=== PATIENT | female | born 1990 | race African-American/Black ===

== ENCOUNTER 2023-11-17 00:53 | Emergency (ER) | payer MEDICAID ==
[~2023-11-17] VITALS: Ht 167.6 cm; Wt 118.2 kg
[~2023-11-17 00:53] MED LIST: IRON PILLS
[2023-11-17 01:05] VITALS: TEMP 98.3
[2023-11-17 01:57] LABS: BASOPHILS % (AUTO) 0.4 % (0.0-2.0); EOSINOPHILS % (AUTO) 0.1 % (1.0-6.0); HEMATOCRIT 37.9 % (36-46); HEMOGLOBIN 12.6 g/dL (12.0-16.0); LYMPHOCYTES # (AUTO) 0.7 K/uL (1.0-4.8); LYMPHOCYTES % (AUTO) 6.6 % (22.0-44.0); MEAN CORPUSCULAR HEMOGLOBIN 27.3 pg (26.0-34.0); MEAN CORPUSCULAR HGB CONC 33.4 G/dL (31.0-37.0); MEAN CORPUSCULAR VOLUME 82 fL (80-100); MONOCYTES # (AUTO) 0.6 K/uL (0.1-1.0); MONOCYTES % (AUTO) 5.6 % (2.0-9.0); NEUTROPHILS # (AUTO) 9.5 K/uL (1.8-7.7); PLATELET COUNT (AUTO) 364 K/uL (150-450); RED BLOOD CELL COUNT(AUTO) 4.64 MIL/uL (4.00-5.20); RED CELL DISTRIBUTION WIDTH 15.1 % (11.5-14.5); WHITE BLOOD COUNT (AUTO) 10.8 K/uL (4.5-11.0)
[2023-11-17 02:01] LABS: NEUTROPHILS % (AUTO) 87.3 % (40.0-70.0)
[2023-11-17 02:17] LABS: ANION GAP 16 mmol/L (8-16); CALCIUM, TOTAL 9.7 mg/dL (8.8-10.5); CARBON DIOXIDE 24 mmol/L (22-29); CHLORIDE 101 mmol/L (98-107); CREATININE 1.17 mg/dL (0.60-1.30); GLOMERULAR FILTR. RATE CALC > 60 mL/min (>60); GLUCOSE,RANDOM 116 mg/dL (70-110); HCG,QUANTITATIVE 1 mIU/mL (0-6); SODIUM SERUM 141 mmol/L (136-145); UREA NITROGEN, BLOOD 12 mg/dL (7-18)
[2023-11-17 02:20] LABS: POTASSIUM 2.8 mmol/L (3.5-5.1)
[2023-11-17] MEDS: SODIUM CHLORIDE 0.9% 1,000 ML IV ONE (02:48)
[2023-11-17] MEDS: ONDANSETRON HCL 4 MG/2 ML VIAL IVP ONE (02:48)
[2023-11-17] MEDS: POTASSIUM CHLORIDE 20 MEQ ER TABLET PO ONE (02:49)
[2023-11-17] MEDS: MORPHINE SULFATE 2 MG/ML SYRINGE IVP ONE (02:50)
[2023-11-17 03:09] VITALS: BP 127/81; PULSE 79; RESP 20
[2023-11-17 03:38] LABS: ALANINE AMINOTRANSFERASE 14 U/L (12-78); ALBUMIN 3.8 g/dL (3.4-5.0); ALKALINE PHOSPHATASE 91 U/L (46-116); ASPARTATE AMINOTRANSFERASE 18 U/L (15-37); BILIRUBIN,TOTAL 1.4 mg/dL (0.1-1.0); TOTAL PROTEIN, SERUM 8.9 g/dL (6.4-8.2)
[2023-11-17 05:22] LABS: APPEARANCE,URINE HAZY (CLEAR); COLOR,URINE YELLOW (YELLOW); GLUCOSE, URINE (UA) NEGATIVE (NEGATIVE); KETONES,URINE 40-60 mg/dL (NEGATIVE); LEUKOCYTE ESTERASE ,URINE SMALL (NEGATIVE); NITRATE,URINE NEGATIVE (NEGATIVE); OCCULT BLOOD,URINE LARGE (NEGATIVE); PROTEIN,URINE 300-600,SEE CONFIRM mg/dL (NEGATIVE); SPECIFIC GRAVITIY, URINE 1.028 (1.003-1.030)
[2023-11-17 05:32] LABS: BILIRUBIN,URINE SMALL (NEGATIVE); RBC,URINE >100 /HPF (0-2); SULFOSALICYLIC ACID,URINE 4+ (Negative)
[2023-11-17 05:33] LABS: BACTERIA,URINE None Seen /HPF (None Seen); SQUAMOUS EPITHELIAL CELL,UR Few /LPF (None Seen)
[2023-11-17] MEDS ORDERED: CEPH-558 PO (05:49)
[2023-11-17] MEDS: CEPHALEXIN MONOHYDRATE 500 MG CAPSULE PO ONE (06:30)
== END 2023-11-17 06:37 | disposition home or self-care (01) ==
LOC: EMS 00:55
DX: N39.0 Urinary tract infection, site not specified (principal); M54.9 Dorsalgia, unspecified; D64.9 Anemia, unspecified
CPT/HCPCS: 99285; 74176; 96374; 96361; 96375; 80048; 80076; 81001; 84702; 85025; 36415; J2270; J2405; J7030; 81002

== ENCOUNTER 2023-11-30 19:48 | Inpatient (IN) | payer MEDICAID ==
[~2023-11-30] VITALS: Ht 175.3 cm; Wt 137.4 kg
[~2023-11-30 19:48] MED LIST changes: +CEPH-558 PO
[2023-11-30 20:43] LABS: BASOPHILS % (AUTO) 0.7 % (0.0-2.0); EOSINOPHILS % (AUTO) 0.2 % (1.0-6.0); HEMATOCRIT 36.2 % (36-46); HEMOGLOBIN 11.6 g/dL (12.0-16.0); LYMPHOCYTES # (AUTO) 2.1 K/uL (1.0-4.8); MEAN CORPUSCULAR HEMOGLOBIN 26.5 pg (26.0-34.0); MEAN CORPUSCULAR HGB CONC 32.2 G/dL (31.0-37.0); MEAN CORPUSCULAR VOLUME 82 fL (80-100); MONOCYTES % (AUTO) 7.7 % (2.0-9.0); NEUTROPHILS # (AUTO) 9.3 K/uL (1.8-7.7); NEUTROPHILS % (AUTO) 74.4 % (40.0-70.0); PLATELET COUNT (AUTO) 355 K/uL (150-450); RED BLOOD CELL COUNT(AUTO) 4.39 MIL/uL (4.00-5.20); RED CELL DISTRIBUTION WIDTH 15.1 % (11.5-14.5); WHITE BLOOD COUNT (AUTO) 12.6 K/uL (4.5-11.0)
[2023-11-30 20:54] LABS: ANION GAP 13 mmol/L (8-16); CALCIUM, TOTAL 9.3 mg/dL (8.8-10.5); CARBON DIOXIDE 23 mmol/L (22-29); CHLORIDE 99 mmol/L (98-107); CREATININE 0.96 mg/dL (0.60-1.30); GLOMERULAR FILTR. RATE CALC > 60 mL/min (>60); GLUCOSE,RANDOM 96 mg/dL (70-110); POTASSIUM 3.7 mmol/L (3.5-5.1); SODIUM SERUM 135 mmol/L (136-145); UREA NITROGEN, BLOOD 7 mg/dL (7-18)
[2023-11-30 21:02] LABS: ALCOHOL, BLOOD (SERUM) < 3 mg/dL (0-10)
[2023-11-30 22:09] LABS: PH,URINE DRUG SCREEN 5.5 (5.0-8.0)
[2023-11-30 22:17] LABS: ALCOHOL, URINE DRUG SCREEN NEGATIVE (NEGATIVE); BENZODIAZEPINES SCREEN,URINE NEGATIVE (NEGATIVE); COCAINE SCREEN,URINE NEGATIVE (NEGATIVE); METHADONE SCREEN, URINE NEGATIVE (NEGATIVE); OPIATE SCREEN,URINE NEGATIVE (NEGATIVE); PHENCYCLIDINE SCREEN,URINE NEGATIVE (NEGATIVE)
[2023-11-30 22:29] LABS: AMPHET/METH SCREEN,URINE NEGATIVE (NEGATIVE)
[2023-11-30 22:50] LABS: BARBITURATE SCREEN, URINE NEGATIVE (NEGATIVE); CANNABINOID SCREEN,URINE POSITIVE (NEGATIVE)
[2023-11-30 22:58] LABS: COVID AG,FIA SOURCE NASAL SWAB
[2023-11-30 23:18] LABS: SARS-COV2 (COVID) ANTIGEN,FIA Negative (Negative)
[2023-12-01 02:42] VITALS: O2SAT 98
[2023-12-01] MEDS ORDERED: ZOLPIDEM TARTRATE 10 MG TABLET PO PRN (03:00)
[2023-12-01 04:23] LABS: APPEARANCE,URINE TURBID (CLEAR); BILIRUBIN,URINE NEGATIVE (NEGATIVE); COLOR,URINE ORANGE (YELLOW); GLUCOSE, URINE (UA) NEGATIVE (NEGATIVE); LEUKOCYTE ESTERASE ,URINE LARGE (NEGATIVE); NITRATE,URINE NEGATIVE (NEGATIVE); OCCULT BLOOD,URINE NEGATIVE (NEGATIVE); PH,URINE 5.5 (5.0-8.0); PROTEIN,URINE 30-70 mg/dL (NEGATIVE); SPECIFIC GRAVITIY, URINE 1.024 (1.003-1.030)
[2023-12-01 04:34] LABS: AMORPHOUS SEDIMENT,UR Many /LPF (None Seen); BACTERIA,URINE None Seen /HPF (None Seen); RBC,URINE None Seen /HPF (0-2); SQUAMOUS EPITHELIAL CELL,UR Few /LPF (None Seen)
[2023-12-01] MEDS: DiphenhydrAMINE HCL 50 MG/ML VIAL IM ONE (05:37)
[2023-12-01] MEDS: HALOPERIDOL LACTATE 5 MG/ML VIAL IM ONE (05:37)
[2023-12-01] MEDS: LORazepam 2 MG/ML VIAL IM ONE (05:37)
[2023-12-01 06:17] VITALS: BP 108/60; PULSE 100; RESP 18; TEMP 97.6; O2SAT 99
[2023-12-01 08:25] VITALS: BP 109/61; PULSE 77; RESP 16; TEMP 97.1; O2SAT 98
[2023-12-01] MEDS ORDERED: GuaiFENesin/D-METHORPHAN [SUGAR-FREE] 200-20MG/10 ML SYRUP UDCUP PO PRN (15:30)
[2023-12-01] MEDS ORDERED: CloNIDine HCL 0.1 MG TABLET PO PRN (15:30)
[2023-12-01] MEDS ORDERED: DOCUSATE SODIUM 100 MG CAPSULE PO PRN (15:30)
[2023-12-01] MEDS ORDERED: LOPERAMIDE HCL 2 MG CAPSULE PO PRN (15:30)
[2023-12-01] MEDS ORDERED: PETROLATUM,WHITE 28 GM JELLY TP PRN (15:30)
[2023-12-01] MEDS ORDERED: ONDANSETRON 4 MG TABLET PO PRN (15:30)
[2023-12-01] MEDS ORDERED: MAGNESIUM HYDROXIDE SUSPENSION 30 ML UDCUP PO PRN (15:30)
[2023-12-01] MEDS ORDERED: IBUPROFEN 400 MG TABLET PO PRN (15:30)
[2023-12-01] MEDS ORDERED: MAG HYDROX/ALUMINUM HYD/SIMETH ES 30 ML SUSPENSION UDCUP PO PRN (15:30)
[2023-12-01] MEDS ORDERED: ACETAMINOPHEN 325 MG TABLET PO PRN (15:30)
[2023-12-01] MEDS ORDERED: NICOTINE 14 MG/24 HOUR PATCH TD PRN (15:30)
[2023-12-01] MEDS ORDERED: ALBUTEROL SULFATE HFA 90 MCG/PUFF 8 GM INHALER IH PRN (15:30)
[2023-12-01 20:26] VITALS: BP 115/80; PULSE 80; RESP 18; TEMP 97.6; O2SAT 98
[2023-12-02 08:26] VITALS: RESP 16
[2023-12-02] MEDS: CEPHALEXIN MONOHYDRATE 500 MG CAPSULE PO SCH (09:00)
[2023-12-02 21:56] VITALS: RESP 16
[2023-12-03 09:46] VITALS: RESP 18
[2023-12-04] MEDS: LORazepam 2 MG TABLET PO PRN (08:14)
[2023-12-04] MEDS: HALOPERIDOL 5 MG TABLET PO PRN (08:14)
[2023-12-04 08:19] VITALS: BP 116/79; PULSE 84; RESP 16; TEMP 98.3; O2SAT 97
[2023-12-04 19:35] LABS: GLUCOMETER DEV NAME(LOC) POC.BV; POC SARS-COV2 AG, FIA NEGATIVE (NEGATIVE)
[2023-12-04 20:39] VITALS: BP 115/75; PULSE 94; RESP 16; TEMP 98.2; O2SAT 98
[2023-12-05 08:37] VITALS: RESP 18
[2023-12-05 20:00] VITALS: RESP 16
[2023-12-06 08:27] VITALS: RESP 18
[2023-12-06 20:53] VITALS: BP 111/76; PULSE 76; RESP 17; TEMP 97.7; O2SAT 98
[2023-12-07 08:34] VITALS: BP 117/60; PULSE 100; RESP 18; TEMP 98; O2SAT 96
== END 2023-12-07 15:57 | disposition left against medical advice (07) | DRG 751 ==
LOC: EMS 19:50 → B3A 12-01 04:24
PROVIDERS: ADMIT Psychiatry & Neurology Child & Adolescent Psychiatry; ATTEND Psychiatry & Neurology Child & Adolescent Psychiatry
PROC: GZHZZZZ Group Psychotherapy (ICD-10-PCS; principal; 2023-12-02)
PROC: GZ52ZZZ Individual Psychotherapy, Cognitive (ICD-10-PCS; 2023-12-02)
DX: F32.3 Major depressive disorder, single episode, severe with psychotic features (principal); D64.9 Anemia, unspecified; F12.10 Cannabis abuse, uncomplicated; I10 Essential (primary) hypertension; N39.0 Urinary tract infection, site not specified; Z20.822 Contact with and (suspected) exposure to COVID-19; Z53.29 Procedure and treatment not carried out because of patient's decision for other reasons
CPT/HCPCS: 80048; 80307; 81001; 84703; 85025; 99285; G0480; J1200; J1630; J2060